=== PATIENT | female | born 1960 | race African-American/Black ===

== ENCOUNTER → 2017-01-14 | Outpatient (CLI) | payer BC ==
[~2017-01-14] MED LIST: ALLEGRA; FISH OIL 1,0001 CAP
--- NOTE | ~2017-01-14 | MY29 ---
[facility] A Service of [facility] RADIOLOGY TEXT RESULTS PATIENT: MATT ACKERMAN LOCATION: [facility] : 56 UNIT #: [id number] AGE: [address]: David Concepcion MD SEX: F ORDER DR: [id number] [facility] [address] [place], [place] [address] [id number] O MR#: [id number] Acc #: [id number] NAME: MATT ACKERMAN : 1960 SEX: F STUDY DATE/TIME: 01/14/2017 16:23 UNIT: [facility] ROOM: STUDY DESCRIPTION: [facility] SCREENING W/ CAD BILAT Attending Physician: David Concepcion M.D. Referring Physician: David Concepcion M.D. Ordering Physician: David Concepcion M.D. Primary Care Physician: David Concepcion M.D. MEDICAL IMAGING REPORT This report is preliminary unless electronic signature is present EXAM Bilateral digital screening mammogram with CAD 01/14/2017. INDICATIONS 56-year-old female for routine screening. No reported problems and no personal or family history of breast cancer. No surgeries. TECHNIQUE CC and MLO views of the breasts were obtained and reviewed with an FDA-approved CAD device. COMPARISON 12/24/2015, 12/21/2014, 11/24/2013, and prior studies dating back to 08/19/2010. FINDINGS Breast parenchyma is composed of scattered fibroglandular densities. The pattern is unchanged. There is no new dominant nodule, mass, or suspicious cluster of microcalcifications. IMPRESSION Negative screening mammogram; 1-year followup recommended. Patients over the age of 40 are entered into a reminder system with target due date for the next mammogram. A result letter will also be sent to the patient. BIRADS: 1 Negative Dictated by... Demarcus Amanda M.D. [facility] A Service [facility] RADIOLOGY TEXT RESULTS PATIENT: MATT ACKERMAN LOCATION: [facility] : 56 UNIT #: [id number] AGE: [address]: David Concepcion MD SEX: F ORDER DR: THIS IS AN ELECTRONICALLY VERIFIED REPORT Demarcus Amanda M.D. at 01/15/2017 5:21 PM Paco TD: 01/15/2017 11:40 JOB #: [id number] MEDICAL IMAGING REPORT Page 1 of 1 COPY
== END | disposition home or self-care (01) ==
LOC: CWCC 01-12 16:30
DX: Z12.31 Encounter for screening mammogram for malignant neoplasm of breast (principal)
CPT/HCPCS: G0202